=== PATIENT | male | born 1960 | race Caucasian/White ===

== ENCOUNTER 2019-12-19 02:18 | Emergency (ER) | payer OTHER ==
[2019-12-19 02:23] VITALS: BP 133/90; PULSE 111; RESP 18; TEMP 98.4
[2019-12-19] MEDS ORDERED: MUPIROCIN 2% OINT 22 GM TUBE TOPICAL STA (02:51)
[2019-12-19] MEDS ORDERED: SULFAMETH-TMP DS STARTER PACK 2 TAB BTL PO STA (02:51)
[2019-12-19] MEDS ORDERED: SULFAMETHOX-TMP 800-160MG 1 EACH TAB PO STA (02:51)
--- NOTE | 2019-12-19 02:54 | ED ---
Skin/Abscess/FB HPI - General Chief complaint: Wound/Laceration Stated complaint: Left leg wound Time Seen by Provider: 12/19/19 02:23 Source: patient, RN notes reviewed, old records reviewed Mode of arrival: ambulatory Limitations: no limitations - History of Present Illness Initial comments: This is a 59-year-old male DF for evaluation of significant redness and pain of his left thigh area. Patient is no injury noted to that area he has some drainage from it initial area originally, his been cleaned washed With the redness has been spreading. No fevers. Patient has not been on antibiotics for symptoms. No other noted areas of rash or illness MD complaint: rash -: days(s) Tetanus Up to Date: unsure Location: LLE Severity: moderate Severity scale (1-10): 5 Quality: burning (And itching) Consistency: constant Improves with: none Worsens with: none Context: none Associated symptoms: denies other symptoms - Related Data Previous Rx's Medication Instructions Recorded Sulfamethox-Tmp 800-160Mg [Bactrim 2 tab PO BID #40 tab 12/19/19 DS 800-160 mg] Allergies Allergy/AdvReac Type Severity Reaction Status Date / Time Penicillins Allergy Rash/Hives Verified 12/19/19 02:23 Review of Systems ROS Statement: Those systems with pertinent positive or pertinent negative responses have been documented in the HPI. ROS Other: All systems not noted in ROS Statement are negative. Past Medical History Past Medical History: No Reported History History of Any Multi-Drug Resistant Organisms: None Reported Past Surgical History: No Surgical Hx Reported Past Psychological History: No Psychological Hx Reported Smoking Status: Current every day smoker Past Alcohol Use History: None Reported Past Drug Use History: None Reported General Exam Limitations: no limitations General appearance: alert, in no apparent distress Head exam: Present: atraumatic, normocephalic, normal inspection Eye exam: Present: normal appearance, PERRL, EOMI. Absent: scleral icterus, conjunctival injection, periorbital swelling ENT exam: Present: normal exam, mucous membranes moist Neck exam: Present: normal inspection. Absent: tenderness, meningismus, lympha denopathy Respiratory exam: Present: normal lung sounds bilaterally. Absent: respiratory distress, wheezes, rales, rhonchi, stridor Cardiovascular Exam: Present: regular rate, normal rhythm, normal heart sounds. Absent: systolic murmur, diastolic murmur, rubs, gallop, clicks GI/Abdominal exam: Present: soft, normal bowel sounds. Absent: distended, tenderness, guarding, rebound, rigid Extremities exam: Present: normal inspection, full ROM, normal capillary refill, other (Left lower extremity a significant area of rash circular with a diameter of 7 cm). Absent: tenderness, pedal edema, joint swelling, calf tenderness Back exam: Present: normal inspection Neurological exam: Present: alert, oriented X3, CN II-XII intact Psychiatric exam: Present: normal affect, normal mood Skin exam: Present: warm, dry, intact, normal color. Absent: rash Course Vital Signs 12/19/19 02:19 Temperature 98.4 F Pulse Rate 111 H Respiratory 18 Rate Blood Pressure 133/90 O2 Sat by Pulse 100 Oximetry - Reevaluation(s) Reevaluation #1: Medical records reviewed Spoke with patient need for antibiotics as well as topical antibiotics a 60 okay for discharge will return if symptoms worsen or fever Medical Decision Making - Medical Decision Making 59 male DL without functionally cellulitis will trial outpatient antibiotics and topical antibiotics return if symptoms worsen or fever Disposition Clinical Impression: Left leg cellulitis Disposition: HOME SELF-CARE Condition: Good Instructions (If sedation given, give patient instructions): Cellulitis (ED) Prescriptions: Sulfamethox-Tmp 800-160Mg [Bactrim DS 800-160 mg] 2 tab PO BID #40 tab Is patient prescribed a controlled substance at d/c from ED?: No Referrals: None,Stated [Primary Care Provider] - 1-2 days
== END 2019-12-19 03:13 | disposition home or self-care (01) ==
LOC: EC 02:18
DX: L03.116 Cellulitis of left lower limb (principal); F17.200 Nicotine dependence, unspecified, uncomplicated; Z88.0 Allergy status to penicillin
CPT/HCPCS: 99283

== ENCOUNTER 2020-12-26 17:30 | Inpatient (IN) | payer OTHER ==
[2020-12-26 18:45] LABS: Basophils # (A) 0.1 k/uL (0-0.2); Basophils % (A) 1 %; Eosinophils # (A) 0.2 k/uL (0-0.7); Eosinophils % (A) 2 %; HGB 15.6 gm/dL (13.0-17.5); Lymphocytes # (A) 1.5 k/uL (1.0-4.8); Lymphocytes % (A) 15 %; MCH 33.4 pg (25.0-35.0); MCHC 33.2 g/dL (31.0-37.0); MCV 100.6 fL (80.0-100.0); Macrocytosis Slight; Mean Platelet Volume 7.1; Monocytes # (A) 0.5 k/uL (0-1.0); Monocytes % (A) 5 %; Neutrophils # (A) 7.8 k/uL (1.3-7.7); Neutrophils % (A) 75 %; Platelet Count 319 k/uL (150-450); RBC 4.67 m/uL (4.30-5.90); WBC 10.3 k/uL (3.8-10.6)
[2020-12-26 18:54] LABS: ALT 22 U/L (4-49); AST 28 U/L (17-59); African American GFR (CKD) >90 (>60 ml/min/1.73 sqM); Albumin 4.4 g/dL (3.5-5.0); Alkaline Phosphatase 75 U/L (38-126); Anion Gap 9 mmol/L; Blood Urea Nitrogen 13 mg/dL (9-20); Calcium 9.6 mg/dL (8.4-10.2); Carbon Dioxide 24 mmol/L (22-30); Chloride 107 mmol/L (98-107); Glucose 144 mg/dL (74-99); Non-African American GFR(CKD) >90 (>60 ml/min/1.73 sqM); Potassium 4.5 mmol/L (3.5-5.1); Sodium 140 mmol/L (137-145); Total Bilirubin 0.5 mg/dL (0.2-1.3)
--- NOTE | 2020-12-26 18:57 | XR ---
EXAMINATION TYPE: XR chest 2V DATE OF EXAM: 12/26/2020 COMPARISON: NONE HISTORY: Short of breath TECHNIQUE: 4 views FINDINGS: There is large right-sided pneumothorax more than 75%. There is no significant shift of the mediastinum. Left lung is clear. There is pulmonary hyperinflation and flattening of the diaphragm. IMPRESSION: Large right-sided pneumothorax without evidence of significant tension. COPD. This exam w as discussed with Jose Phillips at 7:00 PM.
[2020-12-26 19:06] LABS: Prothrombin Time 10.3 sec (9.0-12.0)
--- NOTE | 2020-12-26 19:06 | ED ---
SOB HPI - General Source: patient, EMS, RN notes reviewed Mode of arrival: EMS <Jose Phillips - Last Filed: 12/26/20 19:52> <Rodriguez Licea - Last Filed: 12/26/20 20:02> - General Chief Complaint: Shortness of Breath Stated Complaint: ELLIS Time Seen by Provider: 12/26/20 17:54 - History of Present Illness Initial Comments: Patient is a 60-year-old male that presents to emergency department complaining of a one to two-week history of shortness of breath. He notes that he is a long-time smoker. He notes that he was outside he doing yardwork one when he came into the cool air and noticed that his symptoms started. The injury or trauma to his chest or ribs. Patient did appear to be feeling under the weather. She denied any history of lung complications during issues but thinks that he might of developed some with the last 2 weeks. He denied any chest pain headache nausea vomiting diarrhea constipation fever fatigue chills. (Jose Phillips) - Related Data Home Medications Medication Instructions Recorded Confirmed No Known Home Medications 12/26/20 12/26/20 Allergies Allergy/AdvReac Type Severity Reaction Status Date / Time Penicillins Allergy Rash/Hives Verified 12/26/20 18:55 Review of Systems ROS Other: All systems not noted in ROS Statement are negative. <Jose Phillips - Last Filed: 12/26/20 19:52> ROS Other: All systems not noted in ROS Statement are negative. <Rodriguez Licea - Last Filed: 12/26/20 20:02> ROS Statement: Those systems with pertinent positive or pertinent negative responses have been documented in the HPI. Past Medical History Past Medical History: No Reported History History of Any Multi-Drug Resistant Organisms: None Reported Past Surgical History: No Surgical Hx Reported Past Psychological History: No Psychological Hx Reported Smoking Status: Current every day smoker Past Alcohol Use History: None Reported Past Drug Use History: None Reported <Jose Phillips - Last Filed: 12/26/20 19:52> General Exam General appearance: alert, in no apparent distress, other (Malnourished underweight) Head exam: Present: atraumatic, normocephalic, normal inspection Eye exam: Present: normal appearance, PERRL, EOMI. Absent: scleral icterus, conjunctival injection, periorbital swelling Neck exam: Present: normal inspection Respiratory exam: Present: decreased breath sounds (Right lower lobe right middle lobe). Absent: respiratory distress, wheezes, rales, rhonchi, stridor Cardiovascular Exam: Present: regular rate, normal rhythm, normal heart sounds. Absent: systolic murmur, diastolic murmur, rubs, gallop, clicks Extremities exam: Present: normal inspection, full ROM, normal capillary refill. Absent: tenderness, pedal edema, joint swelling, calf tenderness Neurological exam: Present: alert, oriented X3 Psychiatric exam: Present: normal affect, normal mood Skin exam: Present: warm, dry, intact, normal color. Absent: rash <Jose Phillips - Last Filed: 12/26/20 19:52> Course Vital Signs 12/26/20 12/26/20 12/26/20 17:42 18:48 19:47 Temperature 97.6 F Pulse Rate 116 H 114 H 116 H Respiratory 25 H 20 20 Rate Blood Pressure 145/94 113/92 124/93 O2 Sat by Pulse 97 96 Oximetry Procedures - Chest Tube Insertion Consent Obtained: written consent Side of Procedure: right Indication: Pneumothorax Placed on monitor/pulse oximetry: Yes Site Prep: Chloroprep Local Anesthesia: Lidocaine 1% Amount (mLs): 10 Insertion Site: Other (Midclavicular line, second intercostal space.) Scalpel: #11 Open into Pleural Space Using: Trocar Tube Size (Argentine): Other (11-Argentine) Returns: Air Sutured in Place: No Attached to Suction: Yes Type of Suction: Pleuravac Repeat X-ray Results: Lung Inflated Patient Tolerated Procedure: well <Rodriguez Licea - Last Filed: 12/26/20 20:02> Medical Decision Making - Lab Data Result diagrams: 12/26/20 18:38 12/26/20 18:38 - EKG Data -: EKG Interpreted by Nm EKG shows normal: sinus rhythm Rate: tachycardia - Radiology Data Radiology results: report reviewed, image reviewed <Jose Phillips - Last Filed: 12/26/20 19:52> - Lab Data Result diagrams: 12/26/20 18:38 12/26/20 18:38 <Rodriguez Licea - Last Filed: 12/26/20 20:02> - Medical Decision Making 60-year-old male complaining of shortness of breath for the last week to 2 weeks. Basic labs, chest x-ray ordered. X-ray shows a pretty significant right pneumothorax with no tension. Labs: Lactic acid 2.8, rest unremarkable. Covid test negative. Case discussed with Dr. Licea. (Jose Phillips) 60-year-old male significant COPD history presenting with worsening dyspnea over the past 2 weeks. Confirmed pneumothorax on 2 view chest x-ray without tension. Given the tachycardia and increased dyspnea, chest tube was placed, thoravent 11-Argentine. This was placed to suction, repeat chest x-ray showing improved aeration of the right long. Patient will be admitted to Dr. Barton who is aware of the patient with cardio thoracic surgery on consult. (Rodriguez Licea) - Lab Data Lab Results 12/26/20 12/26/20 12/26/20 Range/Units 18:38 18:38 18:38 WBC 10.3 (3.8-10.6) k/uL RBC 4.67 (4.30-5.90) m/uL Hgb 15.6 (13.0-17.5) gm/dL Hct 47.0 (39.0-53.0) % MCV 100.6 H (80.0-100.0) fL MCH 33.4 (25.0-35.0) pg MCHC 33.2 (31.0-37.0) g/dL RDW 14.0 (11.5-15.5) % Plt Count 319 (150-450) k/uL MPV 7.1 Neutrophils % 75 % Lymphocytes % 15 % Monocytes % 5 % Eosinophils % 2 % Basophils % 1 % Neutrophils # 7.8 H (1.3-7.7) k/uL Lymphocytes # 1.5 (1.0-4.8) k/uL Monocytes # 0.5 (0-1.0) k/uL Eosinophils # 0.2 (0-0.7) k/uL Basophils # 0.1 (0-0.2) k/uL Macrocytosis Slight PT 10.3 (9.0-12.0) sec INR 1.0 (<1.2) APTT 23.0 (22.0-30.0) sec D-Dimer 0.50 (<0.60) mg/L FEU Sodium 140 (137-145) mmol/L Potassium 4.5 (3.5-5.1) mmol/L Chloride 107 (98-107) mmol/L Carbon Dioxide 24 (22-30) mmol/L Anion Gap 9 mmol/L BUN 13 (9-20) mg/dL Creatinine 0.70 (0.66-1.25) mg/dL Est GFR (CKD-EPI)AfAm >90 (>60 ml/min/1.73 sqM) Est GFR (CKD-EPI)NonAf >90 (>60 ml/min/1.73 sqM) Glucose 144 H (74-99) mg/dL Plasma Lactic Acid Edward (0.7-2.0) mmol/L Calcium 9.6 (8.4-10.2) mg/dL Magnesium 2.0 (1.6-2.3) mg/dL Total Bilirubin 0.5 (0.2-1.3) mg/dL AST 28 (17-59) U/L ALT 22 (4-49) U/L Alkaline Phosphatase 75 (38-126) U/L Troponin I (0.000-0.034) ng/mL NT-Pro-B Natriuret Pep pg/mL Total Protein 7.0 (6.3-8.2) g/dL Albumin 4.4 (3.5-5.0) g/dL Coronavirus (PCR) (Not Detectd) 12/26/20 12/26/20 12/26/20 Range/Units 18:38 18:38 18:38 WBC (3.8-10.6) k/uL RBC (4.30-5.90) m/uL Hgb (13.0-17.5) gm/dL Hct (39.0-53.0) % MCV (80.0-100.0) fL MCH (25.0-35.0) pg MCHC (31.0-37.0) g/dL RDW (11.5-15.5) % Plt Count (150-450) k/uL MPV Neutrophils % % Lymphocytes % % Monocytes % % Eosinophils % % Basophils % % Neutrophils # (1.3-7.7) k/uL Lymphocytes # (1.0-4.8) k/uL Monocytes # (0-1.0) k/uL Eosinophils # (0-0.7) k/uL Basophils # (0-0.2) k/uL Macrocytosis PT (9.0-12.0) sec INR (<1.2) APTT (22.0-30.0) sec D-Dimer (<0.60) mg/L FEU Sodium (137-145) mmol/L Potassium (3.5-5.1) mmol/L Chloride (98-107) mmol/L Carbon Dioxide (22-30) mmol/L Anion Gap mmol/L BUN (9-20) mg/dL Creatinine (0.66-1.25) mg/dL Est GFR (CKD-EPI)AfAm (>60 ml/min/1.73 sqM) Est GFR (CKD-EPI)NonAf (>60 ml/min/1.73 sqM) Glucose (74-99) mg/dL Plasma Lactic Acid Edward 2.8 H* (0.7-2.0) mmol/L Calcium (8.4-10.2) mg/dL Magnesium (1.6-2.3) mg/dL Total Bilirubin (0.2-1.3) mg/dL AST (17-59) U/L ALT (4-49) U/L Alkaline Phosphatase (38-126) U/L Troponin I <0.012 (0.000-0.034) ng/mL NT-Pro-B Natriuret Pep 29 pg/mL Total Protein (6.3-8.2) g/dL Albumin (3.5-5.0) g/dL Coronavirus (PCR) (Not Detectd) 12/26/20 Range/Units 18:38 WBC (3.8-10.6) k/uL RBC (4.30-5.90) m/uL Hgb (13.0-17.5) gm/dL Hct (39.0-53.0) % MCV (80.0-100.0) fL MCH (25.0-35.0) pg MCHC (31.0-37.0) g/dL RDW (11.5-15.5) % Plt Count (150-450) k/uL MPV Neutrophils % % Lymphocytes % % Monocytes % % Eosinophils % % Basophils % % Neutrophils # (1.3-7.7) k/uL Lymphocytes # (1.0-4.8) k/uL Monocytes # (0-1.0) k/uL Eosinophils # (0-0.7) k/uL Basophils # (0-0.2) k/uL Macrocytosis PT (9.0-12.0) sec INR (<1.2) APTT (22.0-30.0) sec D-Dimer (<0.60) mg/L FEU Sodium (137-145) mmol/L Potassium (3.5-5.1) mmol/L Chloride (98-107) mmol/L Carbon Dioxide (22-30) mmol/L Anion Gap mmol/L BUN (9-20) mg/dL Creatinine (0.66-1.25) mg/dL Est GFR (CKD-EPI)AfAm (>60 ml/min/1.73 sqM) Est GFR (CKD-EPI)NonAf (>60 ml/min/1.73 sqM) Glucose (74-99) mg/dL Plasma Lactic Acid Edward (0.7-2.0) mmol/L Calcium (8.4-10.2) mg/dL Magnesium (1.6-2.3) mg/dL Total Bilirubin (0.2-1.3) mg/dL AST (17-59) U/L ALT (4-49) U/L Alkaline Phosphatase (38-126) U/L Troponin I (0.000-0.034) ng/mL NT-Pro-B Natriuret Pep pg/mL Total Protein (6.3-8.2) g/dL Albumin (3.5-5.0) g/dL Coronavirus (PCR) Not Detected (Not Detectd) - EKG Data EKG Comments: Ventricular rate 112 bpm, MO interval 140 ms, QRS duration 84 ms, QTC 453 ms, PRT axes 90/10/80. Sinus tachycardia, right atrial enlargement, rightward axis, pulmonary disease pattern, abnormal ECG. (Jose Phillips) - Radiology Data Chest x-ray: Large right-sided pneumothorax without evidence of significant tension. COPD. This exam was discussed with Evans Phillips at 7 PM. (Jose Phillips) Critical Care Time Critical Care Time: Yes Total Critical Care Time: 35 <Rodriguez Licea - Last Filed: 12/26/20 20:02> Disposition <Jose Phillips - Last Filed: 12/26/20 19:52> Is patient prescribed a controlled substance at d/c from ED?: No Decision to Admit Reason: Admit from EC Decision Date: 12/26/20 Decision Time: 20:02 <Rodriguez Licea - Last Filed: 12/26/20 20:02> Clinical Impression: Pneumothorax Disposition: ADMITTED IP TO THIS [facility] Condition: Stable Referrals: None,Stated [Primary Care Provider] - 1-2 days
[2020-12-26] MEDS ORDERED: LIDOCAINE 1% INJ 10MG/ML (20 ML MDV) SQ ONE (19:39)
[2020-12-26] MEDS ORDERED: NALOXONE 0.4 MG/ML 1 ML VIAL IV PRN (19:57)
--- NOTE | 2020-12-26 20:21 | XR ---
EXAMINATION TYPE: XR chest 1V portable DATE OF EXAM: 12/26/2020 COMPARISON: Today HISTORY: Chest TECHNIQUE: Single view FINDINGS: There is a right-sided chest tube that appears in good position. There is complete clearing of the right side pneumothorax. Trachea is midline. There is some interstitial infiltrate and atelec tasis in the lower lung magallanes bilaterally. There are chest leads. IMPRESSION: Mild atelectasis in the lower lung magallanes. Complete clearing of the pneumothorax. There i s COPD.
[2020-12-26] MEDS: SODIUM CHLORIDE 0.9% 1,000 ML IV SCH (20:46)
[2020-12-26] MEDS: ACETAMINOPHEN TAB 325 MG TAB PO PRN (22:09)
[2020-12-26] MEDS ORDERED: SODIUM CHLORIDE 0.9% 500 ML 500 ML IV ONE (22:31)
[2020-12-27] MEDS: SODIUM CHLORIDE 0.9% 1,000 ML IV SCH (05:18)
[2020-12-27] MEDS: HYDROmorphone 0.5 MG/0.5 ML SYRINGE IVP PRN ×3 (05:33→21:02)
[2020-12-27 05:50] LABS: Appearance,Urine Clear (Clear); Bilirubin,Urine Negative (Negative); Blood,Urine Negative (Negative); Color,Urine Yellow; Glucose,Urine (UA) Trace (Negative); Ketones,Urine Negative (Negative); Leukocyte Esterase,Urine Negative (Negative); Nitrite,Urine Negative (Negative); Protein,Urine Negative (Negative); Specific Gravity,Urine 1.018 (1.001-1.035); Urobilinogen,Urine <2.0 mg/dL (<2.0)
--- NOTE | 2020-12-27 07:32 | XR ---
EXAMINATION TYPE: XR chest 1V portable DATE OF EXAM: 12/27/2020 COMPARISON: 12/26/2020 INDICATION: Right-sided pneumothorax TECHNIQUE: Single frontal view of the chest is obtained. FINDINGS: The heart size is normal. The pulmonary vasculature is normal. Mild right lower lobe infiltrate is present. Some left perihilar infiltrate may be present. Infiltrat e is developed the right costophrenic angle. There is some minimal increase in the right pneumothorax less than 5%. IMPRESSION: 1. Increasing right lower lobe, right costophrenic angle, left perihilar infiltrates. 2. Very minimal increase in a tiny pneumothorax.
--- NOTE | 2020-12-27 09:51 | P.GSCN ---
<Cande Esquivel - Last Filed: 12/27/20 09:36> History of Present Illness Consult date: 12/27/20 Reason for Consult: Right-sided spontaneous pneumothorax Requesting physician: Rodriguez Licea History of present illness: This is a 60-year-old gentleman who does not follow on a regular basis with a primary care physician. He has no reported previous medical history except current tobacco dependence, COPD, occasional marijuana use, and family history of premature coronary artery disease with father at 59 from myocardial infarction. Approximately 10 days ago he had been out in the yard gardening when he came into the air conditioned house, the cold air hit him and he felt very short of breath. He reports using his 's nebulizer with improvement in his breathing. Over the last 10 days he has continued to have episodes of shortness of breath mostly relieved with his 's breathing treatments, however yesterday afternoon his dyspnea was no longer controlled and he felt like his heart was racing so he presented to [facility] emergency room for evaluation and treatment. On chest x-ray he was noted to have a large right-sided pneumothorax without evidence of tension. A thoravent was placed by the emergency room physicians and connected to wall suction with good re- expansion of the right lung. The patient immediately felt improvement in his breathing. He reports never having pneumothorax previously. The patient was admitted for continued management of pneumothorax with consultation placed to cardiothoracic surgery for recommendations. Review of Systems Review of systems was completed and was negative except as noted - Respiratory Reports as per HPI, Reports cough, Reports dyspnea Past Medical History Past Medical History: COPD History of Any Multi-Drug Resistant Organisms: None Reported Past Surgical History: No Surgical Hx Reported Past Anesthesia/Blood Transfusion Reactions: No Reported Reaction Past Psychological History: No Psychological Hx Reported Smoking Status: Current every day smoker Past Alcohol Use History: None Reported Past Drug Use History: Marijuana Additional Drug Use History / Comment(s): Occasional marijuana Additional History: Reportedly has smoked approximately 1 pack per day for the last 50 years - Past Family History Father Family Medical History: Myocardial Infarction ([place]) Additional Family Medical History / Comment(s): Father of myocardial infarction at 59 years old Mother Family Medical History: COPD Additional Family Medical History / Comment(s): Mother of emphysema Medications and Allergies Home Medications Medication Instructions Recorded Confirmed Type No Known Home Medications 12/26/20 12/26/20 History Allergies Allergy/AdvReac Type Severity Reaction Status Date / Time Penicillins Allergy Rash/Hives Verified 12/26/20 18:55 Surgical - Exam Vital Signs Temp Pulse Resp BP Pulse Ox 97.6 F 116 H 25 H 145/94 97 12/26/20 17:42 12/26/20 17:42 12/26/20 17:42 12/26/20 17:42 12/26/20 17:42 CONSTITUTIONAL: Awake and alert, appears comfortable, cooperative, cachectic, no pain, no acute distress EYES: Pupils equal, round, reactive to light, normal ocular movement ENT: Moist mucous membranes without oral lesions present NECK: No masses, no bruits, trachea midline RESPIRATORY: Lungs sounds diminished bilaterally. Respirations even, nonlabored. Currently on 2 L nasal cannula with oxygen saturation 100%. Strong nonproductive cough. Able to achieve 3000 mL on his incentive spirometry. Right-sided thoravent present and connected to continuous wall suction, no air leak currently present CARDIOVASCULAR: S1, S2 present. Regular rate and rhythm, sinus rhythm on telemetry. Palpable peripheral pulses bilaterally. No edema present. No calf pain or tenderness noted. GASTROINTESTINAL: Abdomen soft, nontender, nondistended without masses or organomegaly noted. There is no rebound or guarding present. Active bowel sounds present 4 quadrants. GENITOURINARY: Deferred INTEGUMENTARY: Skin is warm and dry with evidence of good perfusion. NEUROLOGIC: Cranial nerves II through XII intact, normal coordination, no obvious motor or sensory deficits, speech is normal MUSKULOSKELETAL: Able to move all extremities, strength equal bilaterally, normal posture PSYCHIATRIC: Alert and oriented to person place and time, appropriate affect, intact judgment and insight Results - Labs 12/26/20 18:38 12/26/20 18:38 Abnormal Lab Results - Last 24 Hours (Table) 12/26/20 12/26/20 12/26/20 Range/Units 18:38 18:38 18:38 MCV 100.6 H (80.0-100.0) fL Neutrophils # 7.8 H (1.3-7.7) k/uL Glucose 144 H (74-99) mg/dL Plasma Lactic Acid Edward 2.8 H* (0.7-2.0) mmol/L Urine Glucose (UA) (Negative) 12/26/20 12/27/20 12/27/20 Range/Units 21:07 00:03 05:20 MCV (80.0-100.0) fL Neutrophils # (1.3-7.7) k/uL Glucose (74-99) mg/dL Plasma Lactic Acid Edward 4.2 H* 3.7 H* (0.7-2.0) mmol/L Urine Glucose (UA) Trace H (Negative) Diabetes panel 12/26/20 Range/Units 18:38 Sodium 140 (137-145) mmol/L Potassium 4.5 (3.5-5.1) mmol/L Chloride 107 (98-107) mmol/L Carbon Dioxide 24 (22-30) mmol/L BUN 13 (9-20) mg/dL Creatinine 0.70 (0.66-1.25) mg/dL Glucose 144 H (74-99) mg/dL Calcium 9.6 (8.4-10.2) mg/dL AST 28 (17-59) U/L ALT 22 (4-49) U/L Alkaline Phosphatase 75 (38-126) U/L Total Protein 7.0 (6.3-8.2) g/dL Albumin 4.4 (3.5-5.0) g/dL Calcium panel 12/26/20 Range/Units 18:38 Calcium 9.6 (8.4-10.2) mg/dL Albumin 4.4 (3.5-5.0) g/dL Pituitary panel 12/26/20 Range/Units 18:38 Sodium 140 (137-145) mmol/L Potassium 4.5 (3.5-5.1) mmol/L Chloride 107 (98-107) mmol/L Carbon Dioxide 24 (22-30) mmol/L BUN 13 (9-20) mg/dL Creatinine 0.70 (0.66-1.25) mg/dL Glucose 144 H (74-99) mg/dL Calcium 9.6 (8.4-10.2) mg/dL Adrenal panel 12/26/20 Range/Units 18:38 Sodium 140 (137-145) mmol/L Potassium 4.5 (3.5-5.1) mmol/L Chloride 107 (98-107) mmol/L Carbon Dioxide 24 (22-30) mmol/L BUN 13 (9-20) mg/dL Creatinine 0.70 (0.66-1.25) mg/dL Glucose 144 H (74-99) mg/dL Calcium 9.6 (8.4-10.2) mg/dL Total Bilirubin 0.5 (0.2-1.3) mg/dL AST 28 (17-59) U/L ALT 22 (4-49) U/L Alkaline Phosphatase 75 (38-126) U/L Total Protein 7.0 (6.3-8.2) g/dL Albumin 4.4 (3.5-5.0) g/dL - Imaging Chest x-ray: report reviewed, image reviewed EKG: image reviewed Assessment and Plan Assessment: 1. Spontaneous right-sided pneumothorax, first occurrence, status post placement of a thoravent by emergency room physicians 2. Shortness of breath, secondary to above 3. Lactic acidosis present on admission, resolved 4. Current long-term tobacco dependence 5. COPD 6. Occasional marijuana use 7. Family history of premature coronary artery disease Plan: The patient was seen and examined at the bedside. Chart/diagnostics were reviewed. The case was discussed in detail with Dr. Messina. At this time we will keep his thoravent connected to continuous wall suction. If there is no air leak present in the morning we will place him to waterseal and obtain a chest CT without contrast. Encourage incentive spirometry use. Wean O2 as tolerated. Increase activity, may take off suction for short periods of time to ambulate in the hallway. Smoking cessation counseling offered. Medical management of other comorbidities per primary care service. More recommendations to follow. Thank you for this consult. We will follow along with you. Time with Patient: Greater than 30 <Chetan Messina - Last Filed: 12/28/20 21:14> Surgical - Exam Vital Signs Temp Pulse Resp BP Pulse Ox 97.6 F 116 H 25 H 145/94 97 12/26/20 17:42 12/26/20 17:42 12/26/20 17:42 12/26/20 17:42 12/26/20 17:42 Results - Labs 12/28/20 08:22 12/26/20 18:38 Abnormal Lab Results - Last 24 Hours (Table) 12/28/20 Range/Units 08:22 WBC 13.3 H (3.8-10.6) k/uL RBC 4.25 L (4.30-5.90) m/uL MCV 102.4 H (80.0-100.0) fL Neutrophils # 10.1 H (1.3-7.7) k/uL Assessment and Plan Plan: The patient is a 60 year old male who presented to the ED with acute shortness of breath. Workup revealed first episode of spontaneous pneumothorax. A thoravent was placed with re-expansion of lung. Continue thoravent to suction for now. Recommend CT scan of the chest to determine presence of blebs/bullae. No plan for surgical intervention at this time. We will follow along with you.
[2020-12-27 13:11] VITALS: BMI 15.7
--- NOTE | 2020-12-27 15:05 | P.HPIM ---
History of Present Illness This is a pleasant 60 years old male with no significant past medical history. Presents because of shortness of breath for 10 days duration with no significant cough but he is spitting white to yellow Twice today. Right-sided chest pain when he came in but today's chest pain is improved. His dyspnea was much worse yesterday so he decided to come to emergency room. He denies Diarrhea or dysuria or fever. No headache or weakness He smokes about 12 cigarettes to 1 pack per day, he is counseled to quit and he agrees but he declined nicotine patch for now. Or illicit drugs. He does not have PCP. He is not on Home oxygen at baseline Vital signs stable, currently he saturated 100% on 2 L oxygen via nasal Cannula Labs reviewed, CBC is unremarkable. INR is normal at 1.0. D-dimer is negative at 0.5. Lactic acid elevated at 4.2 came back to normal at 1.5 Rest of BMP and liver enzymes are unremarkable. ProBNP is 29. And is negative less than 0.012. Urine analysis is unremarkable. Covid test is negative. Chest x-ray showed a large right-sided pneumothorax without tension. COPD. Repeat chest x-ray this morning showing increasing right lower lobe and left perihilar infiltrates He is currently on normal saline at 100 mL per hour. Management Cardiothoracic surgery with lens been consulted to the emergency room repeat chest x-ray today showing worsened right lower lobe infiltrate Review of Systems CONSTITUTIONAL: No fever, no malaise, no fatigue. HEENT: No recent visual problems or hearing problems. Denied any sore throat. CARDIOVASCULAR: No orthopnea, PND, no palpitations, no syncope. PULMONARY: No shortness of breath, no cough, no hemoptysis. GASTROINTESTINAL: No diarrhea, no nausea, no vomiting, no abdominal pain. Normoactive bowel sounds. NEUROLOGICAL: No headaches, no weakness, no numbness. HEMATOLOGICAL: Denies any bleeding or petechiae. GENITOURINARY: Denies any burning micturition, frequency, or urgency. MUSCULOSKELETAL/RHEUMATOLOGICAL: Denies any joint pain, swelling, or any muscle pain. ENDOCRINE: Denies any polyuria or polydipsia. Past Medical History Past Medical History: No Reported History History of Any Multi-Drug Resistant Organisms: None Reported Past Surgical History: No Surgical Hx Reported Past Anesthesia/Blood Transfusion Reactions: No Reported Reaction Past Psychological History: No Psychological Hx Reported Smoking Status: Current every day smoker Past Alcohol Use History: None Reported Past Drug Use History: None Reported - Past Family History Father Family Medical History: Myocardial Infarction ([place]) Additional Family Medical History / Comment(s): Father of myocardial infarction at 59 years old Mother Family Medical History: COPD Additional Family Medical History / Comment(s): Mother of emphysema Medications and Allergies Home Medications Medication Instructions Recorded Confirmed Type No Known Home Medications 12/26/20 12/26/20 History Allergies Allergy/AdvReac Type Severity Reaction Status Date / Time Penicillins Allergy Rash/Hives Verified 12/26/20 18:55 Physical Exam Vitals: Vital Signs Temp Pulse Pulse Resp BP BP Pulse Ox 12/27/20 04:00 98.1 F 66 20 116/70 100 12/27/20 00:00 98.0 F 95 20 124/68 96 12/26/20 21:30 98.3 F 84 24 121/66 97 12/26/20 20:41 97.9 F 101 H 18 110/75 100 12/26/20 19:47 116 H 20 124/93 96 12/26/20 18:48 114 H 20 113/92 12/26/20 17:42 97.6 F 116 H 25 H 145/94 97 Intake and Output 12/26/20 12/27/20 12/27/20 22:59 06:59 14:59 Intake Total 10 Output Total 625 Balance 10 -625 Intake: IV 10 Invasive Line 1 10 Output: Urine 625 Other: Voiding Method Urinal Urinal Weight 63.503 kg 57.4 kg GENERAL: The patient is alert and oriented x3, not in any acute distress. Well developed, well nourished. HEENT: Pupils are round and equally reacting to light. EOMI. No scleral icterus. No conjunctival pallor. Normocephalic, atraumatic. No pharyngeal erythema. No thyromegaly. CARDIOVASCULAR: S1 and S2 present. No murmurs, rubs, or gallops. PULMONARY: Chest is clear to auscultation, no wheezing or crackles. ABDOMEN: Soft, nontender, nondistended, normoactive bowel sounds. No palpable organomegaly. MUSCULOSKELETAL: No joint swelling or deformity. EXTREMITIES: No cyanosis, clubbing, or pedal edema. NEUROLOGICAL: Gross neurological examination did not reveal any focal deficits. SKIN: No rashes. No petechiae Results CBC & Chem 7: 12/26/20 18:38 12/26/20 18:38 Labs: Abnormal Lab Results - Last 24 Hours (Table) 12/26/20 12/26/20 12/26/20 Range/Units 18:38 18:38 18:38 MCV 100.6 H (80.0-100.0) fL Neutrophils # 7.8 H (1.3-7.7) k/uL Glucose 144 H (74-99) mg/dL Plasma Lactic Acid Edward 2.8 H* (0.7-2.0) mmol/L Urine Glucose (UA) (Negative) 12/26/20 12/27/20 12/27/20 Range/Units 21:07 00:03 05:20 MCV (80.0-100.0) fL Neutrophils # (1.3-7.7) k/uL Glucose (74-99) mg/dL Plasma Lactic Acid Edward 4.2 H* 3.7 H* (0.7-2.0) mmol/L Urine Glucose (UA) Trace H (Negative) Assessment and Plan Assessment: Acute right pneumothorax, status post thoravent Right lower lobe pneumonia Patient with elevated lactic acid came back to normal Increasing right lower lobe and left perihilar infiltrate Plan: this is a pleasant 60 years old male who presents with a right pneumothorax Cardiothoracic surgery consult. Pain management Start patient on Levaquin Labs and medication were reviewed.. Continue same treatment. Continue with symptomatic treatment. Resume home medication. Monitor lytes and vitals. DVT and GI prophylaxis. Further recommendations depends on the clinical course of the patient DVT prophylaxis: Subcutaneous heparin GI Prophylaxis: Pepcid PT/OT: Pending Prognosis is guarded
[2020-12-27] MEDS: LEVOFLOXACIN 500MG-D5W PMX 500 MG in DEXTROSE/WATER 1 100ML.BAG IVPB SCH (16:16)
[2020-12-27] MEDS: HEPARIN SODIUM,PORCINE/PF 5,000 UNIT/0.5 ML SYRINGE SQ SCH ×2 (16:17→22:53)
[2020-12-27] MEDS: FAMOTIDINE 20 MG/2 ML VIAL IV SCH (20:08)
[2020-12-28] MEDS: KETOROLAC 15 MG/ML 1 ML VIAL IVP PRN (07:56)
[2020-12-28] MEDS: HEPARIN SODIUM,PORCINE/PF 5,000 UNIT/0.5 ML SYRINGE SQ SCH ×2 (07:57→19:40)
[2020-12-28] MEDS: FAMOTIDINE 20 MG/2 ML VIAL IV SCH ×2 (07:57→19:40)
--- NOTE | 2020-12-28 08:04 | CT ---
EXAMINATION TYPE: CT chest wo con DATE OF EXAM: 12/28/2020 COMPARISON: X-ray from yesterday and up to 3 days earlier. HISTORY: Pneumothorax, Blebs?; Abnormal x-rays. ; CT DLP: 235 mGycm. Automated Exposure Control for Dose Reduction was Utilized. TECHNIQUE: CT scan of the thorax is performed without IV contrast. FINDINGS: LUNGS: Advanced underlying emphysematous change is redemonstrated. There is tiny right pleural fluid collection or effusion with associated compressive atelectasis. Some dependent atelectasis along the fissures in the right lung are present. There is mild to moderate medial bibasilar linear scarring an d/or atelectasis. There is anterior right-sided pleural drainage catheter with tiny residual right ap ical pneumothorax estimated at less than 5% appreciated best on coronal image 45. There is large righ t apical bulla noted just inferior to this. No mediastinal shift. MEDIASTINUM: Lack of IV contrast is noted to limit evaluation for mediastinal and especially hilar ad enopathy. There are no definitive greater than 1 cm hilar or mediastinal lymph nodes. Small pericardi al effusion is seen anterior inferior aspect. Coronary artery calcification is present. No cardiomega ly. OTHER: Occasional calcifications scattered throughout the liver and spleen consistent with product of old granulomatous disease. S-shaped scoliosis. IMPRESSION: Advanced emphysematous change bilaterally. Tiny right apical pneumothorax less than 5% ad jacent to large right apical bulla despite right anterior chest tube.
--- NOTE | 2020-12-28 09:09 | P.PN ---
Subjective Progress Note Date: 12/28/20 Principal diagnosis: Spontaneous right-sided pneumothorax, first occurrence, status post placement of a thoravent by emergency room physicians, shortness of breath, lactic acidosis present on admission. Medical history of current long-term tobacco dependence, COPD, occasional marijuana use, family history of premature coronary artery disease The patient's currently sitting up in bed in no acute distress. Denies pain or shortness of breath. States he has been coughing up a lot of yellow sputum. Thoravent was placed to waterseal this morning, CT was completed demonstrating trivial 5% remaining apical pneumothorax on the right side, patient does have emphysematous changes to the lungs. Atrium were removed, non-occlusive cap placed to thoravent. Remains on 3 L nasal cannula although oxygen saturation has remained in the high 90s to 100%. No other new concerns. Objective - Vital Signs Vital signs: Vital Signs Temp 97.6 F 12/28/20 04:00 Pulse 51 L 12/28/20 04:00 Resp 18 12/28/20 04:00 BP 109/66 12/28/20 04:00 Pulse Ox 100 12/28/20 04:00 Intake & Output 12/27/20 12/28/20 12/28/20 18:59 06:59 18:59 Intake Total 480 340 Output Total 1100 1000 900 Balance -620 -660 -900 Weight 57.4 kg 57 kg Intake: Oral 480 340 Output: Urine 1100 1000 900 Other: # Voids 1 - Exam CONSTITUTIONAL: Appears comfortable, cooperative, no acute distress RESPIRATORY: Lungs sounds diminished bilaterally. Respirations even, nonlabored. Currently on 2 L nasal cannula with oxygen saturation 100%. Able to achieve 3000 mL on incentive spirometry. Strong cough. CARDIOVASCULAR: S1, S2 present. Regular rate and rhythm, sinus rhythm on telemetry. Palpable peripheral pulses bilaterally. No edema present. No calf pain or tenderness noted. GASTROINTESTINAL: Abdomen soft, nontender, nondistended. Active bowel sounds present 4 quadrants. Tolerating diet. GENITOURINARY: Continues to void INTEGUMENTARY: Skin is warm and dry with evidence of good perfusion. NEUROLOGIC: Cranial nerves II through XII intact MUSKULOSKELETAL: Able to move all extremities, strength equal bilaterally, gait normal PSYCHIATRIC: Alert and oriented to person place and time, appropriate affect, intact judgment and insight INVASIVE LINES AND TUBES: Right-sided thoravent present, nonocclusive cap present, positive air leak with coughing as determined by fluctuation of the right diaphragm - Labs CBC & Chem 7: 12/26/20 18:38 12/26/20 18:38 - Imaging and Cardiology CT scan - chest: report reviewed, image reviewed Assessment and Plan Assessment: 1. Spontaneous right-sided pneumothorax, first occurrence, status post placement of a thoravent by emergency room physicians 2. Shortness of breath, secondary to above 3. Lactic acidosis present on admission, resolved 4. Current long-term tobacco dependence 5. COPD with emphysematous changes to the lungs present on CT 6. Occasional marijuana use 7. Family history of premature coronary artery disease Plan: 1. Will leave thoravent in place with nonocclusive cap. When no air leak pre sent we will place occlusive cap 2. Wean O2 as tolerated. Encourage incentive spirometry use 10 times every hour while awake 3. Will monitor daily x-rays 4. Increase activity, ambulate as tolerated 5. Smoking cessation counseling reinforced 6. Medical management for comorbidities per primary care service 7. Patient may stay inpatient for management of thoravent. If primary care wishes to discharge to patient at home he may be discharged with thoravent in place to follow-up with cardiothoracic surgery in the office and we will instruct the patient what to look for 8. No surgical intervention warranted at this time. We did discuss with the patient however that if he develops a second pneumothorax this phenomenon is likely to continue to recur and at that point we would likely offer surgery including stapling of blebs and mechanical pleurodesis. The patient verbalized understanding 9. More recommendations to follow Time with Patient: Greater than 30
[2020-12-28 09:55] LABS: Basophils % (A) 0 %; Eosinophils # (A) 0.2 k/uL (0-0.7); Eosinophils % (A) 1 %; HCT 43.5 % (39.0-53.0); HGB 14.1 gm/dL (13.0-17.5); Lymphocytes # (A) 2.3 k/uL (1.0-4.8); Lymphocytes % (A) 18 %; MCH 33.1 pg (25.0-35.0); MCHC 32.3 g/dL (31.0-37.0); MCV 102.4 fL (80.0-100.0); Macrocytosis Slight; Mean Platelet Volume 7.7; Monocytes # (A) 0.5 k/uL (0-1.0); Monocytes % (A) 4 %; Neutrophils # (A) 10.1 k/uL (1.3-7.7); Neutrophils % (A) 76 %; Platelet Count 296 k/uL (150-450); RBC 4.25 m/uL (4.30-5.90); RDW 14.1 % (11.5-15.5); WBC 13.3 k/uL (3.8-10.6)
--- NOTE | 2020-12-28 13:08 | P.PN ---
Subjective This is a pleasant 60 years old male with no significant past medical history. Presents because of shortness of breath for 10 days duration with no significant cough but he is spitting white to yellow Twice today. Right-sided chest pain when he came in but today's chest pain is improved. His dyspnea was much worse yesterday so he decided to come to emergency room. He denies Diarrhea or dysuria or fever. No headache or weakness He smokes about 12 cigarettes to 1 pack per day, he is counseled to quit and he agrees but he declined nicotine patch for now. Or illicit drugs. He does not have PCP. He is not on Home oxygen at baseline Vital signs stable, currently he saturated 100% on 2 L oxygen via nasal Cannula Labs reviewed, CBC is unremarkable. INR is normal at 1.0. D-dimer is negative at 0.5. Lactic acid elevated at 4.2 came back to normal at 1.5 Rest of BMP and liver enzymes are unremarkable. ProBNP is 29. And is negative less than 0.012. Urine analysis is unremarkable. Covid test is negative. Chest x-ray showed a large right-sided pneumothorax without tension. COPD. Repeat chest x-ray this morning showing increasing right lower lobe and left perihilar infiltrates He is currently on normal saline at 100 mL per hour. Management Cardiothoracic surgery with lens been consulted to the emergency room repeat chest x-ray today showing worsened right lower lobe infiltrate 12/28/2020 Patient is with minimal dyspnea today, no chest pain. Vital signs stable, no fever. 94% on room air. Scan of the chest showing less than 5% pneumothorax despite chest tube, there is no mention of consolidation however there is right chest atelectasis with severe emphysema. Because bleb However her labs today show a leukocytosis of 13 K Patient is still covered with Levaquin for possible pneumonia although clinically he does not behave with pneumonia like no fever, minimal symptoms and improved with chest tube placement. Await for procalcitonin Pulmonary team consulted Repeat chest x-ray tomorrow Cleared tomorrow by pulmonary and cardiothoracic surgery we may consider him for discharge and close outpatient follow-up patient is a previous smoker, he does not want to go back to smoking and he refused nicotine patch stated that he quit cold turkey now Objective - Vital Signs Vital signs: Vital Signs Temp 97.6 F 12/28/20 11:19 Pulse 64 12/28/20 11:19 Resp 16 12/28/20 11:19 BP 117/64 12/28/20 11:19 Pulse Ox 93 L 12/28/20 11:19 Intake & Output 12/27/20 12/28/20 12/28/20 18:59 06:59 18:59 Intake Total 480 340 Output Total 1100 1000 900 Balance -056 -360 -900 Weight 57.4 kg 57 kg Intake: Oral 480 340 Output: Urine 1100 1000 900 Other: # Voids 1 - Exam GENERAL: The patient is alert and oriented x3, not in any acute distress. Well developed, well nourished. HEENT: Pupils are round and equally reacting to light. EOMI. No scleral icterus. No conjunctival pallor. Normocephalic, atraumatic. No pharyngeal erythema. No thyromegaly. CARDIOVASCULAR: S1 and S2 present. No murmurs, rubs, or gallops. -PULMONARY: Chest is clear to auscultation, no wheezing or crackles. Right thoravent is in place ABDOMEN: Soft, nontender, nondistended, normoactive bowel sounds. No palpable organomegaly. MUSCULOSKELETAL: No joint swelling or deformity. EXTREMITIES: No cyanosis, clubbing, or pedal edema. NEUROLOGICAL: Gross neurological examination did not reveal any focal deficits. SKIN: No rashes. no petechiae. - Labs CBC & Chem 7: 12/28/20 08:22 12/26/20 18:38 Labs: Abnormal Lab Results - Last 24 Hours (Table) 12/28/20 Range/Units 08:22 WBC 13.3 H (3.8-10.6) k/uL RBC 4.25 L (4.30-5.90) m/uL MCV 102.4 H (80.0-100.0) fL Neutrophils # 10.1 H (1.3-7.7) k/uL Assessment and Plan Assessment: Acute spontaneous right pneumothorax, status post thoravent Possible Right lower lobe pneumonia versus atelectasis Severe emphysema Patient with elevated lactic acid came back to normal Plan: this is a pleasant 60 years old male who presents with a right pneumothorax Cardiothoracic surgery consult. Pain management Continue with Levaquin and side basing on the probeCosta tone and Pulmonary team consult Labs were reviewed.. Continue same treatment. Continue with symptomatic po tment. Resume home medication. Monitor lytes and vitals. DVT and GI prophylaxis. Further recommendations depends on the clinical course of the patient DVT prophylaxis: Subcutaneous heparin GI Prophylaxis: Pepcid
[2020-12-28] MEDS: LEVOFLOXACIN 500MG-D5W PMX 500 MG in DEXTROSE/WATER 1 100ML.BAG IVPB SCH (15:34)
[2020-12-28] MEDS: ACETAMINOPHEN TAB 325 MG TAB PO PRN (15:34)
--- NOTE | 2020-12-28 16:01 | P.CNPUL ---
History of Present Illness Consult date: 12/28/20 Reason for consult: dyspnea, cough, chest pain, COPD, hypoxemia Chief complaint: Shortness of breath for about a week to 10 days duration History of present illness: This is a 60-year-old male with extensive history of smoking and nicotine use and smokes about one to 2 packs per day for about 30-40 years came into the hospital with progressive increasing shortness of breath started about a week ago his symptoms got better with nebulization treatment however due to persistent shortness of breath came into the hospital for further evaluation, patient underwent a chest x-ray on admit significant large right-sided pn eumothorax was seen without evidence of tension, forever and was placed in the emergency room by emergency room physician with good expansion of the right lung, computed tomography scan performed today shows extensive bilateral emphysematous changes with tiny effusion at the bases, some atelectasis seen, some scarring also noted, tiny residual right pneumothorax less than 5% noted, in addition at [place] right-sided apical bulla was noted as well, patient shortness of breath has significantly improved, chest pain is better, able to ambulate currently on 3 L oxygen, patient is doing incentive spirometry Review of Systems All systems: negative Past Medical History Past Medical History: No Reported History History of Any Multi-Drug Resistant Organisms: None Reported Past Surgical History: No Surgical Hx Reported Past Anesthesia/Blood Transfusion Reactions: No Reported Reaction Past Psychological History: No Psychological Hx Reported Smoking Status: Current every day smoker Past Alcohol Use History: None Reported Past Drug Use History: None Reported - Past Family History Father Family Medical History: Myocardial Infarction ([place]) Additional Family Medical History / Comment(s): Father of myocardial infarction at 59 years old Mother Family Medical History: COPD Additional Family Medical History / Comment(s): Mother of emphysema Medications and Allergies Home Medications Medication Instructions Recorded Confirmed Type No Known Home Medications 12/26/20 12/26/20 History Allergies Allergy/AdvReac Type Severity Reaction Status Date / Time Penicillins Allergy Rash/Hives Verified 12/26/20 18:55 Physical Exam Vitals: Vital Signs Temp Pulse Resp BP Pulse Ox 12/28/20 11:19 97.6 F 64 16 117/64 93 L 12/28/20 08:01 97.7 F 67 16 124/69 99 12/28/20 04:00 97.6 F 51 L 18 109/66 100 12/28/20 00:00 97.5 F L 59 L 18 116/69 99 12/27/20 20:00 98.2 F 72 20 112/65 97 12/27/20 16:00 97.6 F 71 20 127/63 100 Intake and Output 12/28/20 12/28/20 12/28/20 06:59 14:59 22:59 Intake Total 240 Output Total 1000 900 Balance -1000 -660 Intake: Oral 240 Output: Urine 1000 900 Other: # Voids 1 Weight 57 kg - Constitutional General appearance: average body habitus, cooperative, disheveled - EENT Eyes: PERRLA Ears: bilateral: normal - Neck Carotids: bilateral: upstroke normal Thyroid: bilateral: normal size - Respiratory Respiratory: bilateral: diminished - Cardiovascular Rhythm: regular Heart sounds: normal: S1, S2 - Gastrointestinal General gastrointestinal: soft - Integumentary Integumentary: normal turgor - Neurologic Neurologic: CNII-XII intact - Musculoskeletal Musculoskeletal: gait normal, generalized weakness, strength equal bilaterally - Psychiatric Psychiatric: A&O x's 3, appropriate affect, intact judgment & insight Results - Laboratory Findings CBC and BMP: 12/28/20 08:22 12/26/20 18:38 PT/INR, D-dimer PT 10.3 sec (9.0-12.0) 12/26/20 18:38 INR 1.0 (<1.2) 12/26/20 18:38 D-Dimer 0.50 mg/L FEU (<0.60) 12/26/20 18:38 Abnormal lab findings: Abnormal Labs 12/26/20 12/26/20 12/26/20 18:38 18:38 18:38 WBC RBC MCV 100.6 H Neutrophils # 7.8 H Glucose 144 H Plasma Lactic Acid Edward 2.8 H* Urine Glucose (UA) 12/26/20 12/27/20 12/27/20 21:07 00:03 05:20 WBC RBC MCV Neutrophils # Glucose Plasma Lactic Acid Edward 4.2 H* 3.7 H* Urine Glucose (UA) Trace H 12/28/20 08:22 WBC 13.3 H RBC 4.25 L MCV 102.4 H Neutrophils # 10.1 H Glucose Plasma Lactic Acid Edward Urine Glucose (UA) - Diagnostic Findings Chest x-ray: report reviewed, image reviewed CT scan - chest: report reviewed, image reviewed (Finding as noted above) Assessment and Plan Assessment: Right-sided spontaneous pneumothorax Acute on chronic hypoxic respiratory failure End-stage severe COPD Extensive bullous disease of the lung Dehydration and intravascular volume depletion improved Extensive history of smoking and nicotine use Plan: Continue deep breathing exercise incentive spirometry Continue bronchodilator Patient has been consult about smoking cessation Further workup and evaluation of COPD as outpatient including alpha-1 antitrypsin level Leave Thoravent in for now Follow clinical course closely further recommendations pending Time with Patient: Greater than 30
[2020-12-28] MEDS: SODIUM CHLORIDE 0.9% 1,000 ML IV SCH (19:40)
--- NOTE | 2020-12-29 07:54 | P.PN ---
Subjective Progress Note Date: 12/29/20 Principal diagnosis: Spontaneous right-sided pneumothorax, first occurrence, status post placement of a thoravent by emergency room physicians, shortness of breath, lactic acidosis present on admission. Medical history of current long-term tobacco dependence, COPD, occasional marijuana use, family history of premature coronary artery disease The patient's currently sitting up in bed in no acute distress. Denies pain or shortness of breath. [facility], CT was completed demonstrating trivial 5% remaining apical pneumothorax on the right si de, patient does have emphysematous changes to the lungs. No air leak present this morning in thoravent. Remains on 2 L nasal cannula although oxygen saturation has remained in the high 90s to 100%. Patient has been ambulatory with assistance. No other new concerns. Objective - Vital Signs Vital signs: Vital Signs Temp 97.7 F 12/29/20 04:00 Pulse 59 L 12/29/20 04:00 Resp 18 12/29/20 04:00 BP 113/72 12/29/20 04:00 Pulse Ox 99 12/29/20 04:00 Intake & Output 12/28/20 12/29/20 12/29/20 18:59 06:59 18:59 Intake Total 660 Output Total 900 2250 Balance -240 -2250 Weight 58.2 kg Intake: Oral 660 Output: Urine 900 2250 Other: # Voids 2 3 - Exam CONSTITUTIONAL: Appears comfortable, cooperative, no acute distress RESPIRATORY: Lungs sounds diminished bilaterally. Respirations even, nonlabored. Currently on 2 L nasal cannula with oxygen saturation 99%. Able to achieve 3000 mL on incentive spirometry. Strong cough. CARDIOVASCULAR: S1, S2 present. Regular rate and rhythm, sinus rhythm on telemetry. Palpable peripheral pulses bilaterally. No edema present. No calf pain or tenderness noted. GASTROINTESTINAL: Abdomen soft, nontender, nondistended. Active bowel sounds present 4 quadrants. Tolerating diet. GENITOURINARY: Continues to void INTEGUMENTARY: Skin is warm and dry with evidence of good perfusion. NEUROLOGIC: Cranial nerves II through XII intact MUSKULOSKELETAL: Able to move all extremities, strength equal bilaterally, gait normal PSYCHIATRIC: Alert and oriented to person place and time, appropriate affect, intact judgment and insight INVASIVE LINES AND TUBES: Right-sided thoravent present, nonocclusive cap present, no air leak present this morning - Allied health notes Allied health notes reviewed: nursing - Labs CBC & Chem 7: 12/28/20 08:22 12/26/20 18:38 Labs: Abnormal Lab Results - Last 24 Hours (Table) 12/28/20 Range/Units 08:22 WBC 13.3 H (3.8-10.6) k/uL RBC 4.25 L (4.30-5.90) m/uL MCV 102.4 H (80.0-100.0) fL Neutrophils # 10.1 H (1.3-7.7) k/uL - Imaging and Cardiology Chest x-ray: image reviewed Assessment and Plan Assessment: 1. Spontaneous right-sided pneumothorax, first occurrence, status post placement of a thoravent by emergency room physicians 2. Shortness of breath, secondary to above 3. Lactic acidosis present on admission, resolved 4. Current long-term tobacco dependence 5. COPD with emphysematous changes to the lungs present on CT 6. Occasional marijuana use 7. Family history of premature coronary artery disease Plan: 1. Occlusive cap placed to thoravent. Will repeat chest x-ray later this morning. If no increase in pneumothorax likely will discontinue thoravent. If thoravent needs to stay in place patient may be discharged to home from our standpoint with thoravent to follow up in the cardiothoracic surgery office for removal 2. Oxygen removed, monitor pulse oximetry on room air. Encourage incentive spirometry use 10 times every hour while awake 3. Will monitor daily x-rays while hospitalized 4. Increase activity, ambulate as tolerated 5. Smoking cessation counseling reinforced 6. Medical management for comorbidities per primary care service 7. No surgical intervention warranted at this time. We did discuss with the patient however that if he develops a second pneumothorax this phenomenon is likely to continue to recur and at that point we would likely offer surgery including stapling of blebs and mechanical pleurodesis. The patient verbalized understanding 8. More recommendations to follow Time with Patient: Greater than 30
--- NOTE | 2020-12-29 08:30 | XR ---
EXAMINATION TYPE: XR chest 2V DATE OF EXAM: 12/29/2020 COMPARISON: 12/27/2020 INDICATION: Pneumothorax TECHNIQUE: Frontal and lateral views of the chest are obtained. FINDINGS: The heart size is normal. The pulmonary vasculature is normal. There is hyperinflation compatible COPD. The minimal peripheral pneumothorax is identified. The chest tube remains in position. There is some increasing subcutaneous emphysema.. IMPRESSION: 1. Minimal residual right upper outer lung field pneumothorax. There is some mild increase of subcuta neous emphysema in this region. 2. COPD
[2020-12-29] MEDS: FAMOTIDINE 20 MG/2 ML VIAL IV SCH (08:47)
[2020-12-29] MEDS: HEPARIN SODIUM,PORCINE/PF 5,000 UNIT/0.5 ML SYRINGE SQ SCH (08:47)
[2020-12-29 08:51] LABS: HCT 45.6 % (39.0-53.0); HGB 14.8 gm/dL (13.0-17.5); MCH 32.8 pg (25.0-35.0); MCHC 32.5 g/dL (31.0-37.0); Mean Platelet Volume 7.6; Platelet Count 247 k/uL (150-450); RBC 4.52 m/uL (4.30-5.90); RDW 13.4 % (11.5-15.5); WBC 7.7 k/uL (3.8-10.6)
[2020-12-29 09:06] LABS: African American GFR (CKD) >90 (>60 ml/min/1.73 sqM); Anion Gap 5 mmol/L; Blood Urea Nitrogen 16 mg/dL (9-20); Calcium 9.3 mg/dL (8.4-10.2); Carbon Dioxide 29 mmol/L (22-30); Chloride 104 mmol/L (98-107); Glucose 84 mg/dL (74-99); Non-African American GFR(CKD) >90 (>60 ml/min/1.73 sqM); Potassium 4.5 mmol/L (3.5-5.1); Sodium 138 mmol/L (137-145)
--- NOTE | 2020-12-29 11:06 | XR ---
EXAMINATION TYPE: XR chest 2V DATE OF EXAM: 12/29/2020 COMPARISON: 12/29/2020 earlier exam INDICATION: Right pneumothorax TECHNIQUE: Frontal and lateral views of the chest are obtained. FINDINGS: The heart size is normal. The pulmonary vasculature is normal. Hyperinflation is present compatible with COPD. There is an increased AP diameter. There is minimal e ffusion at the right costophrenic angle. Small effusion may be present at the left costophrenic angle . Previous residual pneumothorax appears resolved over the interval. Subcutaneous emphysema is within t he upper outer right axillary region. Chest tube remains on the right. IMPRESSION: 1. Resolution previous right apical pneumothorax. 2. Very minimal effusions may be within the costophrenic angles. 3. COPD
[2020-12-29] MEDS: KETOROLAC 15 MG/ML 1 ML VIAL IVP PRN (12:03)
--- NOTE | 2020-12-29 15:16 | XR ---
EXAMINATION TYPE: XR chest 2V DATE OF EXAM: 12/29/2020 COMPARISON: 12/29/2020 earlier exams INDICATION: Postthoracentesis removal of prior pneumothorax TECHNIQUE: Frontal and lateral views of the chest are obtained. FINDINGS: The heart size is normal. The pulmonary vasculature is normal. Hyperinflation is present from COPD. Patient's previous right pneumothorax. IMPRESSION: 1. No significant pneumothorax post thoracotomy and removal. 2. Persistent subcutaneous emphysema right upper chest wall. 3. COPD
[2020-12-29 15:48] VITALS: BP 114/73; PULSE 76; RESP 18; TEMP 98
--- NOTE | 2020-12-29 16:38 | P.PN ---
Subjective Progress Note Date: 12/29/20 Principal diagnosis: Right-sided spontaneous pneumothorax Acute on chronic hypoxic respiratory failure End-stage severe COPD Extensive bullous disease of the lung Dehydration and intravascular volume depletion improved Extensive history of smoking and nicotine use 12/29/2020, patient seen eval examined sitting upright on the bed breathing comfortably still on 2 L oxygen, denies any chest pain saturation remains stable into mid 90s, able to ambulate and get up, white count is are stable, cardiothoracic surgery has put the Back on pleural removed earlier today, chest x-ray no pneumothorax seen, if patient remains stable can be discharged home with follow-up on outpatient basis his is a 60-year-old male with extensive history of smoking and nicotine use and smokes about one to 2 packs per day for about 30-40 years came into the hospital with progressive increasing shortness of breath started about a week ago his symptoms got better with nebulization treatment however due to persistent shortness of breath came into the hospital for further evaluation, patient un derwent a chest x-ray on admit significant large right-sided pneumothorax was seen without evidence of tension, forever and was placed in the emergency room by emergency room physician with good expansion of the right lung, computed tomography scan performed today shows extensive bilateral emphysematous changes with tiny effusion at the bases, some atelectasis seen, some scarring also noted, tiny residual right pneumothorax less than 5% noted, in addition at [place] right-sided apical bulla was noted as well, patient shortness of breath has significantly improved, chest pain is better, able to ambulate currently on 3 L oxygen, patient is doing incentive spirometry Objective - Vital Signs Vital signs: Vital Signs Temp 98.0 F 12/29/20 15:00 Pulse 76 12/29/20 15:00 Resp 18 12/29/20 15:00 BP 114/73 12/29/20 15:00 Pulse Ox 96 12/29/20 15:00 Intake & Output 12/28/20 12/29/20 12/29/20 18:59 06:59 18:59 Intake Total 660 420 Output Total 900 2250 400 Balance -240 -2250 20 Weight 58.2 kg Intake: Oral 660 420 Output: Urine 900 2250 400 Other: Voiding Method Urinal # Voids 2 3 - Exam - Constitutional General appearance: average body habitus, cooperative, disheveled - EENT Eyes: PERRLA Ears: bilateral: normal - Neck Carotids: bilateral: upstroke normal Thyroid: bilateral: normal size - Respiratory Respiratory: bilateral: diminished - Cardiovascular Rhythm: regular Heart sounds: normal: S1, S2 - Gastrointestinal General gastrointestinal: soft - Integumentary Integumentary: normal turgor - Neurologic Neurologic: CNII-XII intact - Musculoskeletal Musculoskeletal: gait normal, generalized weakness, strength equal bilaterally - Psychiatric Psychiatric: A&O x's 3, appropriate affect, intact judgment & insight - Labs CBC & Chem 7: 12/29/20 07:33 12/29/20 07:33 Labs: Abnormal Lab Results - Last 24 Hours (Table) 12/29/20 Range/Units 07:33 MCV 101.0 H (80.0-100.0) fL Assessment and Plan Assessment: Right-sided spontaneous pneumothorax Acute on chronic hypoxic respiratory failure End-stage severe COPD Extensive bullous disease of the lung Dehydration and intravascular volume depletion improved Extensive history of smoking and nicotine use Plan: Continue deep breathing exercise incentive spirometry Continue bronchodilator Patient has been consult about smoking cessation Further workup and evaluation of COPD as outpatient including alpha-1 antitrypsin level Status post removal of thoravent, no recurrence of pneumothorax on follow-up chest x-ray Stable pulmonary standpoint for discharge Follow clinical course closely further recommendations pending Time with Patient: Greater than 30
--- NOTE | 2020-12-29 18:26 | P.DS ---
Providers Date of admission: 12/26/20 19:57 Attending physician: Jimi Copeland MD Consults: 12/26/20 19:58 Consult Physician Routine Consulting Provider: Oliver Nobles Consult Reason/Comments: Pneumothorax status post Thoravent Do you want consulting provider notified?: Yes 12/27/20 14:59 Consult Physician Urgent Consulting Provider: Salinas Sharma Consult Reason/Comments: pna Do you want consulting provider notified?: Yes Primary care physician: Stated None Hospital Course: Diagnoses: Acute spontaneous right pneumothorax, status post thoravent , which is removed prior to discharge with stable resolved right pneumothorax Possible Right lower lobe atelectasis. No evidence of pneumonia, no fever or leukocytosis. Respiratory symptoms improved and he is on room air. No need for antibiotics upon discharge Severe emphysema Nicotine dependence, quit upon this admission as cold turkey, patient declines nicotine patch Patient with elevated lactic acid came back to normal Hospital course: This is a pleasant 60 years old male with no significant past medical history. Presents because of shortness of breath for 10 days duration with no significant cough but he is spitting white to yellow Twice today. Right-sided chest pain Chest x-ray showed a large right-sided pneumothorax without tension. With COPD. thoravent was placed in the emergency room with resolution of the pneumothorax. Today his thoravent was removed under guidance of the thoracic surgery team. Repeat chest x-ray showing stable findings with no pneumothorax. And hence patient was cleared for discharge by cardiothoracic surgery team and pulmonary service team. On the day of discharge patient is back to his baseline. He denies dyspnea. He is on room air at rest and on exertion, he does not qualify for any home oxygen. No other symptoms. No chest pain or fever or coughing. Change in urine or bowel habits. Patient smokes 12 cigarettes to 1 pack per day, he is counseled to quit and he agrees but he declined nicotine patch for now. Or illicit drugs. He does not have PCP. He is not on Home oxygen at baseline. And he does not have medical insurance. Patient is advised [facility] and he agrees Patient was cleared for discharge by pulmonary and cardiothoracic surgery team Patient agrees to go home today Problems and management plan were discussed with the patient and he verbalized understanding and acceptance Patient was found stable and can be discharged home however he needs follow-up as an outpatient. Patient was instructed to follow up with PCP within one week and patient agrees to follow-up with the [facility]. Patient was instructed to follow up with pulmonary and cardiothoracic surgery team and asked staff to make appointments for him and he agrees with the appointments made with a from [facility] on 01/[address] Sharma chief development officer on 01/07 Physical exam Gen: patient is a AAOx3, no distress CVS: S1-S2, RRR, no murmur Lungs: B/L CTA, no wheezing Abdomen: soft, no distention, no tenderness, positive bowel sounds Extremity: no leg edema or induration Time spent more than 35 minutes Patient Condition at Discharge: Stable Plan - Discharge Summary Discharge Rx Participant: No New Discharge Prescriptions: No Action No Known Home Medications Discharge Medication List No Known Home Medications 12/26/20 [History] Follow up Appointment(s)/Referral(s): Cande Esquivel NPC [Nurse Practitioner] - 01/03/21 2:30 pm (Please obtain chest x-ray at the hospital prior to your appointment. Your appointment will be at the surgeon's office behind the hospital at [facility], [address] [place] [address], [address]. Phone number is ) None,Stated [Primary Care Provider] - 1-2 days [facility] [NON-[facility]FF] - (Please call to schedule a follow up appointment with a primary physician of your choice. ) Salinas Sharma MD [STAFF PHYSICIAN] - 01/07/21 12:00 pm Ambulatory/Diagnostic Orders: XR chest 2V [RAD.AMB] Time Frame: 01/03/21, Facility: [facility], Location: [facility] Patient Instructions/Handouts: Spontaneous Pneumothorax (DC), Chest Tubes (DC) Activity/Diet/Wound Care/Special Instructions: Please leave dressing in place for 48 hours, after that you may remove dressing and shower daily. Continue to use incentive spirometer. NO SMOKING. Any fever over 101F please call surgery office at . Please obtain chest x- ray prior to follow up appointment in surgery office. heart healthy diet activity is restricted till you see your doctor Discharge Disposition: HOME SELF-CARE
--- NOTE | 2021-01-03 16:26 | CONS ---
CONSULTATION DATE OF SERVICE: 12/27/20 I have seen, examined, and agree with the midlevel's findings. MMODL / IJN: [id number] / [id number]
== END 2020-12-29 18:55 | disposition home or self-care (01) | DRG 199 ==
LOC: EC 17:30 → 3SCARD 19:57
PROVIDERS: ADMIT Internal Medicine; ATTEND Internal Medicine
PROC: 0W9930Z Drainage of Right Pleural Cavity with Drainage Device, Percutaneous Approach (ICD-10-PCS; principal; 2020-12-26)
PROC: 3E0F7SF Introduction of Other Gas into Respiratory Tract, Via Natural or Artificial Opening (ICD-10-PCS; 2020-12-26)
DX: J93.11 Primary spontaneous pneumothorax (principal); J96.21 Acute and chronic respiratory failure with hypoxia; E87.2 Acidosis; J43.9 Emphysema, unspecified; E86.9 Volume depletion, unspecified; E86.0 Dehydration; F12.90 Cannabis use, unspecified, uncomplicated; F17.210 Nicotine dependence, cigarettes, uncomplicated; Z20.822 Contact with and (suspected) exposure to COVID-19; Z88.0 Allergy status to penicillin; Z59.7 Insufficient social insurance and welfare support; Z71.6 Tobacco abuse counseling
CPT/HCPCS: 32551; 36415; 71045; 71046; 71250; 80048; 80053; 81003; 83605; 83735; 83880; 84145; 84484; 85025; 85027; 85379; 85610; 85730; 87635; 93005; 99291